=== PATIENT | female | born 1955 | race Caucasian/White ===

== ENCOUNTER 2019-01-23 19:13 | Emergency (ER) | payer OTHER ==
[~2019-01-23] VITALS: Ht 167.6 cm; Wt 61.4 kg
[2019-01-23 19:26] VITALS: BP 156/90
--- NOTE | 2019-01-23 19:57 | NUR ---
laceration left frontal lobe area. old drainage noted
[2019-01-23] MEDS ORDERED: TETanus/Pertussis (Acell)/Diphther VAC/PF (Tdap-Adult) 0.5ml syringe IM ONE (21:20)
== END 2019-01-23 21:40 | disposition home or self-care (01) ==
LOC: ER 19:14
DX: S01.81XA Laceration without foreign body of other part of head, initial encounter (principal); W19.XXXA Unspecified fall, initial encounter; Y93.89 Activity, other specified; Y92.89 Other specified places as the place of occurrence of the external cause; Y99.8 Other external cause status
CPT/HCPCS: 12011; 90471; 99283

== ENCOUNTER 2019-01-27 09:56 | Emergency (ER) | payer BC, OTHER ==
[~2019-01-27] VITALS: Ht 172.7 cm; Wt 65.0 kg
--- NOTE | 2019-01-27 11:05 | NUR ---
to ct scan
[2019-01-27 12:18] VITALS: BP 143/63
== END 2019-01-27 12:24 | disposition home or self-care (01) ==
LOC: ER 09:57
DX: S00.83XA Contusion of other part of head, initial encounter (principal); S80.811A Abrasion, right lower leg, initial encounter; W18.39XA Other fall on same level, initial encounter; Y93.89 Activity, other specified; Y92.89 Other specified places as the place of occurrence of the external cause; Y99.8 Other external cause status
CPT/HCPCS: 70450; 72125; 99284

== ENCOUNTER 2019-02-05 07:11 | Emergency (ER) | payer BC ==
[~2019-02-05] VITALS: Ht 167.6 cm; Wt 64.9 kg
[2019-02-05] MEDS ORDERED: LIDOcaine 1% w/EPI 1:200,000 injection 10mL vial IM ONE (08:35)
[2019-02-05] MEDS ORDERED: LIDOcaine 1% W/epiNEPHrine 1:200,000 10ml vial IJ ONE (08:40)
[2019-02-05 08:46] VITALS: BP 138/86
[2019-02-05] MEDS ORDERED: neomy sulf/bacitrac zn/polymixin b oint 14.2 gm tube TP SCH (09:05)
[2019-02-05] MEDS ORDERED: neomy sulf/bacitrac zn/polymixin b oint 14.2 gm tube TP ONE (09:05)
== END 2019-02-05 10:22 | disposition home or self-care (01) ==
LOC: ER 07:12
DX: S00.03XA Contusion of scalp, initial encounter (principal); R23.4 Changes in skin texture; F17.200 Nicotine dependence, unspecified, uncomplicated; W18.39XA Other fall on same level, initial encounter; Y93.89 Activity, other specified; Y92.89 Other specified places as the place of occurrence of the external cause; Y99.8 Other external cause status
CPT/HCPCS: 10160; 99284